=== PATIENT | female | born 1990 | race African-American/Black ===

== ENCOUNTER 2019-04-17 18:20 | Inpatient (IN) ==
[2019-04-17 18:47] LABS: BASO# 0.02 X1000 (0.0-0.2); BASO% 0.2 % (0.0-0.8); EOS# 0.15 X1000 (0.0-0.7); EOS% 1.7 % (0.0-10.0); HEMATOCRIT 33.5 % (37.0-47.0); HEMOGLOBIN 10.7 g/dL (12.0-16.0); IMM GRAN# 0.02 X1000 (0.0-0.04); IMM GRAN% 0.2 % (0.0-0.5); LYMPH% 30.2 % (20.5-51.1); MCH 28.2 PG (27-31); MCHC 31.9 g/dL (33-37); MCV 88.2 FL (81-99); MONO# 0.39 X1000 (0.11-0.59); MONO% 4.4 % (1.7-9.3); MPV 10.9 FL (7.4-10.4); NEUT# 5.65 X1000 (1.4-6.5); NEUT% 63.3 % (42.2-75.2); PLT 270 X1000 (130-400); RDW 13.1 % (11.5-14.5); WBC 8.93 X1000 (4.8-10.8)
[2019-04-17] MEDS ORDERED: APRESOLINE IV ONE ×2 (19:04→20:33)
[2019-04-17] MEDS ORDERED: TYLENOL PO ONE (19:04)
[2019-04-17 19:07] LABS: PROTEIN CREAT RATIO 0.1; UR CREAT RANDOM 271.4 mg/dL (11-20); UR PROT RANDOM 30.7 mg/dL
[2019-04-17 19:20] LABS: AGAP 15; ALB/GLOB RATIO 1.1; ALBUMIN 3.5 g/dL (3.5-5.0); ALKALINE PHOSPHATASE 96 U/L (32-104); BUN 15 mg/dL (8-22); CALCIUM 9.1 mg/dL (8.8-10.2); CHLORIDE 105 mmol/L (98-107); COSMO 280; CREATININE 0.8 mg/dL (0.5-0.9); ESTIMATED GFR > 60; GLUCOSE 103 mg/dL (70-104); GOT 21 U/L (10-30); GPT 20 U/L (10-36); POTASSIUM 3.7 mmol/L (3.5-5.1); SODIUM 140 mmol/L (136-145); TCO2 20 mmol/L (25-35); TOTAL BILIRUBIN 0.21 mg/dL (0.20-1.00); TOTAL PROTEIN 6.8 g/dL (6.3-8.3); URIC ACID 6.5 mg/dL (2.4-5.7)
[2019-04-17] MEDS ORDERED: LR 1,000 ML ONE (19:23)
[2019-04-17] MEDS: LR 1,000 ML IV SCH (19:49)
[2019-04-17] MEDS: MAGNESIUM SULFATE 40 GM/S.W.I. 40 GM/1,000 ML IV.SOLN IV SCH (19:55)
[2019-04-17] MEDS ORDERED: TORADOL PO ONE (20:34)
[2019-04-17] MEDS: PYRIDIUM PO PRN (20:39)
[2019-04-17 20:46] LABS: URINE SOURCE VOIDED
[2019-04-17] MEDS ORDERED: PYRIDIUM PO SCH (21:00)
[2019-04-17 21:10] LABS: BILIRUBIN URINE NEGATIVE (NEGATIVE); BLOOD URINE LARGE (NEGATIVE); COLOR YELLOW; GLUCOSE URINE NEGATIVE (NEGATIVE); KETONE URINE NEGATIVE (NEGATIVE); LEUKOCYTES URINE MODERATE (NEGATIVE); NITRITE URINE NEGATIVE (NEGATIVE); PROTEIN URINE TRACE mg/dL (NEGATIVE); SP GRAVITY URINE 1.026; TURBIDITY URINE CLEAR (CLEAR); UROBILINOGEN URINE 2 mg/dL (NORMAL)
[2019-04-17] MEDS ORDERED: AYR NASAL SPRAY NAS ONE (21:19)
--- NOTE | 2019-04-17 22:01 | HISTORY AND PHYSICAL ---
HISTORY OF PRESENT ILLNESS: Ms. Metz is a 28-year-old G6, P5-0-1-5, who presents on day #11 status post vaginal delivery with severe-range blood pressures. Ms. Metz has a history of chronic hypertension, and was discharged during her period on labetalol 200 b.i.d. and nifedipine 60 mg daily. The patient admits to compliance with antihypertensive medications; however, presents today with complaint of severe headache unresolved with Tylenol, and lower abdominal pain. The patient denies visual changes/scotomata, epigastric pain/right upper quadrant pain or shortness of breath. The patient admits to and lower abdominal pain worsened with each episode of . PAST MEDICAL HISTORY: Includes chronic hypertension, anemia. MEDICATIONS: Labetalol 200 mg p.o. b.i.d., Procardia 60 mg p.o. daily, ferrous sulfate 300 mg p.o. b.i.d., ibuprofen 800 mg p.o. q.8 hours p.r.n. pain, hydrocodone 5/325 mg p.o. q.4 hours p.r.n. pain. ALLERGIES: Morphine causes rash. SOCIAL HISTORY: Denies tobacco, alcohol or drug use. PAST SURGICAL HISTORY: Dilation and curettage in 2014. FAMILY HISTORY: Grandmother from a brain aneurysm. GYNECOLOGICAL HISTORY: Last Pap smear was in July 2018, negative for intraepithelial lesions or malignancies. Denies history of sexually transmitted infection. OBSTETRICAL HISTORY: G6, P5-0-1-5. Five prior full-term vaginal deliveries, one spontaneous at 12 weeks requiring a D and C. Last 11 days ago, induced at 37 weeks for chronic hypertension; concern for superimposed preeclampsia with severe features. PHYSICAL EXAMINATION: VITAL SIGNS: Temperature 97.6 degrees, pulse rate 79, respiration rate 18, blood pressure 183/119, O2 saturations 100% on room air. Weight 140 pounds, height 5 feet 6 inches tall. GENERAL: Alert, awake and oriented x3. Mild distress secondary to headaches. RESPIRATORY: Clear to auscultation. Negative rhonchi, rales or wheezing. CARDIOVASCULAR: Regular rate and rhythm. Positive S1, S2. ABDOMEN: Soft, nontender to palpation. BREASTS: Full, nontender to palpation. EXTREMITIES: No calf tenderness. Deep tendon reflexes +2. LABORATORY DATA: WBC 8.93, hemoglobin 10.7, hematocrit 33.5, platelets 270,000. Creatinine 0.8, AST 21, ALT 20, protein/creatinine ratio 0.1. ASSESSMENT: Ms. Metz is a 28-year-old 6, para 5-0-1-5, day #11 status post spontaneous vaginal delivery at 37 weeks, with chronic hypertension complicated by severe-range blood pressures. PLAN: 1. Admit to labor and delivery for chronic hypertension with superimposed preeclampsia due to severe-range blood pressures. 2. Obtain PIH labs. 3. Start magnesium sulfate for seizure prophylaxis. 4. We will use IV hydralazine, IV labetalol protocol for severe-range blood pressures. 5. We will continue p.o. antihypertensive medications. 6. Monitor blood pressures closely and report all severe-range blood pressures. 7. Price catheter in situ, monitor urine output closely. 8. Discontinue magnesium in 24 hours, and continue to closely monitor blood pressures.
[2019-04-17] MEDS: TRANDATE PO SCH (22:29)
[2019-04-17] MEDS ORDERED: TRANDATE PO SCH (23:00)
[2019-04-18] MEDS ORDERED: FIORICET PO PRN (05:53)
--- NOTE | 2019-04-18 07:38 | OB/GYN PROGRESS NOTE ---
- Subjective PP12 on mgso4 H/A improved BP improved, 136/90 s/nt -cce A PP exacerbation of CHTN vs Late onset Preclampsia labs wnl, x urate up sl continue mgso4 till 24 hrs continue obs for bp pt understands plan OB Physical Exam Vital Signs - 8 hr 04/18/19 00:00 04/18/19 04:00 Temperature 97.2 F L 98 F Pulse Rate 82 88 Respiratory Rate 18 18 Blood Pressure 135/88 124/78 - CONSTITUTIONAL General Appearance: appears well Active Medications Generic Name Dose Route Start Last Admin Trade Name Freq PRN Reason Stop Dose Admin Acetaminophen/Butalbital/Caffeine 1 each 04/18/19 05:53 Fioricet PO Q4H PRN PRN Headache Magnesium Sulfate 40 gm in 1,000 mls @ 50 mls/hr 04/17/19 19:15 04/17/19 19:55 Magnesium Sulfate 40 Gm/S.W.I. IV 50 mls/hr .Q20H POOJA Administration Lactated Ringer's 1,000 mls @ 75 mls/hr 04/17/19 19:30 04/17/19 19:49 Lr IV 75 mls/hr .[id number] POOJA Administration Labetalol HCl 400 mg 04/17/19 22:15 04/17/19 22:29 Trandate PO 400 mg BID POOJA Administration Nifedipine 30 mg 04/18/19 09:00 Adalat Cc PO DAILY POOJA Phenazopyridine HCl 100 mg 04/17/19 20:24 04/17/19 20:39 Pyridium PO 100 mg TID PRN PRN Administration bladder spasm Laboratory Results - last 24 hr 04/17/19 04/17/19 04/17/19 18:15 18:15 18:40 WBC RBC Hgb Hct MCV MCH MCHC RDW Std Deviation Plt Count MPV Immature Gran % (Auto) Neut % (Auto) Lymph % (Auto) [place] % (Auto) Eos % (Auto) Baso % (Auto) Immature Gran # (Auto) Neut # (Auto) Lymph # (Auto) [place] # (Auto) Eos # (Auto) Baso # (Auto) Sodium 140 Potassium 3.7 Chloride 105 Carbon Dioxide 20 L Anion Gap 15 BUN 15 Creatinine 0.8 Estimated GFR/1.73 m2 > 60 BUN/Creatinine Ratio 19 Glucose 103 Calculated Osmolality 280 Uric Acid 6.5 H Calcium 9.1 Total Bilirubin 0.21 AST 21 ALT 20 Alkaline Phosphatase 96 Total Protein 6.8 Albumin 3.5 Globulin 3.3 Albumin/Globulin Ratio 1.1 Urine Source VOIDED Urine Color YELLOW Urine Turbidity CLEAR Urine pH 6.0 Ur Specific [place] 1.026 Urine Protein TRACE A Ur Glucose (Stick) NEGATIVE Ur Ketones (Stick) NEGATIVE Urine Blood LARGE A Urine Nitrite NEGATIVE Urine Bilirubin NEGATIVE Urobilinogen Dipstick 2 A Urine Leukocytes MODERATE A Ur Random Creatinine 271.4 H U Random Total Protein 30.7 Protein/Creatinin Ratio 0.1 04/17/19 18:40 WBC 8.93 RBC 3.80 L Hgb 10.7 L Hct 33.5 L MCV 88.2 MCH 28.2 MCHC 31.9 L RDW Std Deviation 13.1 Plt Count 270 MPV 10.9 H Immature Gran % (Auto) 0.2 Neut % (Auto) 63.3 Lymph % (Auto) 30.2 [place] % (Auto) 4.4 Eos % (Auto) 1.7 Baso % (Auto) 0.2 Immature Gran # (Auto) 0.02 Neut # (Auto) 5.65 Lymph # (Auto) 2.70 [place] # (Auto) 0.39 Eos # (Auto) 0.15 Baso # (Auto) 0.02 Sodium Potassium Chloride Carbon Dioxide Anion Gap BUN Creatinine Estimated GFR/1.73 m2 BUN/Creatinine Ratio Glucose Calculated Osmolality Uric Acid Calcium Total Bilirubin AST ALT Alkaline Phosphatase Total Protein Albumin Globulin Albumin/Globulin Ratio Urine Source Urine Color Urine Turbidity Urine pH Ur Specific [place] Urine Protein Ur Glucose (Stick) Ur Ketones (Stick) Urine Blood Urine Nitrite Urine Bilirubin Urobilinogen Dipstick Urine Leukocytes Ur Random Creatinine U Random Total Protein Protein/Creatinin Ratio
[2019-04-18] MEDS: LR 1,000 ML IV SCH (08:17)
[2019-04-18] MEDS ORDERED: ADALAT CC PO SCH (09:00)
[2019-04-18] MEDS: TRANDATE PO SCH ×2 (09:01→21:11)
[2019-04-18] MEDS: ADALAT CC PO SCH (09:01)
[2019-04-18] MEDS: MAGNESIUM SULFATE 40 GM/S.W.I. 40 GM/1,000 ML IV.SOLN IV SCH (13:37)
--- NOTE | 2019-04-18 20:56 | OB/GYN PROGRESS NOTE ---
- Subjective PP 12 update mgso4 off at 8P bp stable today 130-150s/70-90s no interventiosn of change in meds H/A improved, recieved fiorynl 1X OB Physical Exam Vital Signs - 8 hr 04/18/19 16:00 04/18/19 20:17 Temperature 97.4 F L Pulse Rate 85 83 Respiratory Rate 16 18 Blood Pressure 143/88 137/92 O2 Sat by Pulse Oximetry 98 98 - CONSTITUTIONAL General Appearance: appears well Active Medications Generic Name Dose Route Start Last Admin Trade Name Freq PRN Reason Stop Dose Admin Acetaminophen/Butalbital/Caffeine 1 each 04/18/19 05:53 04/18/19 16:31 Fioricet PO 1 each Q4H PRN PRN Administration Headache Magnesium Sulfate 40 gm in 1,000 mls @ 50 mls/hr 04/17/19 19:15 04/18/19 13:37 Magnesium Sulfate 40 Gm/S.W.I. IV 50 mls/hr .Q20H POOJA Administration Lactated Ringer's 1,000 mls @ 75 mls/hr 04/17/19 19:30 04/18/19 08:17 Lr IV 75 mls/hr .[id number] POOJA Administration Labetalol HCl 400 mg 04/17/19 22:15 04/18/19 09:01 Trandate PO 400 mg BID POOJA Administration Nifedipine 30 mg 04/18/19 09:00 04/18/19 09:01 Adalat Cc PO 30 mg DAILY POOJA Administration Phenazopyridine HCl 100 mg 04/17/19 20:24 04/17/19 20:39 Pyridium PO 100 mg TID PRN PRN Administration bladder spasm Laboratory Results - last 24 hr 04/17/19 18:15 Urine Color YELLOW Urine Turbidity CLEAR Urine pH 6.0 Ur Specific [place] 1.026 Urine Protein TRACE A Ur Glucose (Stick) NEGATIVE Ur Ketones (Stick) NEGATIVE Urine Blood LARGE A Urine Nitrite NEGATIVE Urine Bilirubin NEGATIVE Urobilinogen Dipstick 2 A Urine Leukocytes MODERATE A
[2019-04-18] MEDS ORDERED: MOTRIN PO PRN (21:00)
[2019-04-18] MEDS: PYRIDIUM PO PRN (21:11)
[2019-04-18 23:01] LABS: URINE SOURCE CLEAN CATCH
[2019-04-18 23:05] LABS: BILIRUBIN URINE NEGATIVE (NEGATIVE); BLOOD URINE MODERATE (NEGATIVE); COLOR YELLOW; GLUCOSE URINE NEGATIVE (NEGATIVE); KETONE URINE NEGATIVE (NEGATIVE); LEUKOCYTES URINE TRACE (NEGATIVE); NITRITE URINE NEGATIVE (NEGATIVE); PH URINE 7.5; PROTEIN URINE NEGATIVE (NEGATIVE); SP GRAVITY URINE 1.009; TURBIDITY URINE CLEAR (CLEAR); UR EPITHELIAL CELLS <10 /HPF (<10); URINE BACTERIA NEGATIVE /HPF; URINE RBC <10 /HPF (<10); URINE WBC <10 /HPF (<10); UROBILINOGEN URINE NORMAL (NORMAL)
[2019-04-19] MEDS ORDERED: NORCO-5 PO ONE (00:41)
--- NOTE | 2019-04-19 08:17 | OB/GYN PROGRESS NOTE ---
- Subjective 28 yo PPD#13 s/p with exacerbation of CHTN vs Pre-eclampsia Patient seen and examined. She is s/p 24 hrs of magnesium sulfate for seizure ppx. She denies any headache, vision changes, chest pain, SOB, RUQ pain. BP has been 130-140s/80-90s. She is on labetalol 400mg BID and Procardia 30mg daily. This AM she does complain of abnormal, foul smelling discharge. She also notes increased vaginal bleeding. She is breast feeding and states she has severe cramping when she breastfeeds. Wet Prep: Trichomonas 2+ OB Physical Exam Vital Signs - 8 hr 04/19/19 04:00 04/19/19 07:34 Temperature 97.5 F L 98.4 F Pulse Rate 73 69 Respiratory Rate 18 Blood Pressure 140/90 141/94 O2 Sat by Pulse Oximetry 99 99 - CONSTITUTIONAL General Appearance: appears well, alert, no apparent distress - HEAD, EARS, NOSE, MOUTH & THROAT HENMT: normocephalic/atraumatic - RESPIRATORY Respiratory: lungs clear, no respiratory distress - CARDIOVASCULAR Cardiovascular: regular rate, rhythm - GASTROINTESTINAL (ABDOMEN) Abdominal Exam: normal bowel sounds, soft, other (fundus firm, below umbilicus. TTP.) - MUSCULOSKELETAL Extremity: non-tender, no pedal edema DTR: knee (R): 1+, knee (L): 1+ - SKIN Integumentary: normal color - NEUROLOGIC Neurologic: grossly normal - PSYCHIATRIC Psych/Mental Status: normal mood/affect Active Medications Generic Name Dose Route Start Last Admin Trade Name Freq PRN Reason Stop Dose Admin Acetaminophen/Butalbital/Caffeine 1 each 04/18/19 05:53 04/18/19 16:31 Fioricet PO 1 each Q4H PRN PRN Administration Headache Lactated Ringer's 1,000 mls @ 75 mls/hr 04/17/19 19:30 04/18/19 08:17 Lr IV 75 mls/hr .[id number] POOJA Administration Ibuprofen 800 mg 04/18/19 21:00 04/18/19 21:16 Motrin PO 800 mg Q8H PRN PRN Administration Pain Labetalol HCl 400 mg 04/17/19 22:15 04/18/19 21:11 Trandate PO 400 mg BID POOJA Administration Nifedipine 30 mg 04/18/19 09:00 04/18/19 09:01 Adalat Cc PO 30 mg DAILY POOJA Administration Phenazopyridine HCl 100 mg 04/17/19 20:24 04/18/19 21:11 Pyridium PO 100 mg TID PRN PRN Administration bladder spasm 04/19/19 07:35 Wet Prep - Final Vaginal Laboratory Results - last 24 hr 04/18/19 21:55 Urine Source CLEAN CATCH Urine Color YELLOW Urine Turbidity CLEAR Urine pH 7.5 Ur Specific [place] 1.009 Urine Protein NEGATIVE Ur Glucose (Stick) NEGATIVE Ur Ketones (Stick) NEGATIVE Urine Blood MODERATE A Urine Nitrite NEGATIVE Urine Bilirubin NEGATIVE Urobilinogen Dipstick NORMAL Urine Leukocytes TRACE A Urine WBC (Auto) <10 Urine RBC (Auto) <10 U Epithel Cells (Auto) <10 Urine Bacteria (Auto) NEGATIVE Microbiology 04/19/19 07:35 Wet Prep - Final Vaginal 04/18/19 21:55 Urine Culture - Preliminary Urine,Clean Catch NO GROWTH OB Assessment & Plan (1) Chronic hypertension Status: Acute Plan: 28 yo PPD#13 s/p with CHTN exacerbation vs PP Pre-eclampsia, vaginal discharge, trichomonas infection/PP endometritis 1. HD stable, afebrile 2. s/p magnesium sulfate x 24 hours for seizure ppx 3. wet prep showed trichomonas> will treat with flagyl 2g PO x 1. Will also check urine gc/ch. 4. BP improved 130-140s/80-90s, on Labetalol 400mg BID, Procardia 30mg daily 5. D/c home later today, f/u in clinic for BP check 6. Will send home with Augmentin x 7 days to treat PP Endometritis, patient with uterine tenderness, abnormal bleeding, and foul smelling d/c.
[2019-04-19] MEDS ORDERED: FLAGYL PO ONE (08:21)
[2019-04-19] MEDS ORDERED: ZOFRAN PO ONE (08:32)
[2019-04-19] MEDS: TRANDATE PO SCH (08:49)
[2019-04-19] MEDS: ADALAT CC PO SCH (08:49)
[2019-04-19] MEDS ORDERED: AUGMENTIN PO SCH (09:00)
[2019-04-19 09:36] VITALS: BP 130/80
--- NOTE | 2019-04-20 14:23 | DISCHARGE SUMMARY ---
ADMISSION DATE: 04/17/2019 DISCHARGE DATE: 04/19/2019 ADMITTING PHYSICIAN: Doris Hoffman DO. CONDITION ON DISCHARGE: Stable. FINAL DIAGNOSES: 1. A 28-year-old G6, P5, 0-1-5, day number 13 status post spontaneous vaginal delivery with exacerbation of chronic hypertension versus preeclampsia. 2. Trichomonas infection. 3. endometritis. HOSPITAL COURSE: The patient presented to Labor and Delivery after being seen in clinic on the same day with elevated blood pressures, with systolics in the 180s. She was admitted to Labor and Delivery and received IV antihypertensive medication and was started on magnesium sulfate for seizure prophylaxis. She was day number 11 status post spontaneous vaginal delivery, in which she was medically induced for worsening chronic hypertension. While inpatient, her p.o. antihypertensive medications were increased to labetalol 400 mg p.o. b.i.d. and Procardia 30 mg daily. She received magnesium sulfate for 24 hours. While inpatient, she also complained of a persistent headache and was treated with Fioricet with good results. While inpatient, she also complained of abnormal vaginal bleeding and a foul-smelling discharge. Wet-prep was sent, which was consistent with Trichomonas. On exam, she also experienced uterine tenderness, and a decision was made to treat her with Augmentin for 7 days for suspected endometritis as well. On hospital day number 2, she was deemed stable for discharge. Her blood pressures prior to discharge were 140s over 90s, and had been within normal range throughout the night. She denied any signs or symptoms of preeclampsia like headache, vision changes, chest pain, shortness of breath or right upper quadrant pain. Her preeclampsia labs, while inpatient, were all within normal limits. She was discharged home in stable condition. Instructed to follow up with Dr. Hoffman in 1 to 2 weeks for blood pressure check. PATIENT INSTRUCTIONS: Patient instructed to notify doctor with temperature greater than 100.4 degrees Fahrenheit, worsening foul-smelling vaginal discharge, vaginal bleeding greater than a pad an hour, or severe abdominal pain. She was also instructed on signs and symptoms of preeclampsia, headache, vision changes, chest pain, shortness of breath, right upper quadrant pain. She states she plans to check her blood pressure at home. She was instructed to come back to the emergency room with systolic blood pressure greater than 160 or diastolic blood pressure greater than 110. Patient instructed to place nothing in her vagina for 6 weeks. No tampons/douching/sex. MEDICATIONS: 1. Labetalol 400 mg p.o. b.i.d. 2. Procardia 30 mg p.o. daily. 3. Augmentin 875 mg p.o. b.i.d. for 7 days. 4. Status post Flagyl 2 grams p.o. while inpatient for treatment of Trichomonas. FOLLOW-UP APPOINTMENT: Patient instructed to follow up with Dr. Hoffman in 1 to 2 weeks for a blood pressure check. Dictated by Krishan Veliz DO for Doris Hoffman DO
== END 2019-04-19 09:05 | disposition home or self-care (01) | DRG 776 ==
LOC: P.OPLD 18:20 → LD 18:22
PROVIDERS: ADMIT Obstetrics & Gynecology; ATTEND Obstetrics & Gynecology